=== PATIENT | male | born 1985 | race Caucasian/White ===

== ENCOUNTER → 2020-11-20 | Emergency (ER) | payer MEDICAID ==
[~2020-11-20] VITALS: Ht 162.6 cm; Wt 82.0 kg
[~2020-11-20] MED LIST: BACITRACIN ZINC OINT UDPKT TOP ONE; BO1 TP
[2020-11-20 04:38] VITALS: BP 135/81
== END | disposition home or self-care (01) ==
LOC: ER 04:30
DX: S60.413A Abrasion of left middle finger, initial encounter (principal); S60.415A Abrasion of left ring finger, initial encounter; W25.XXXA Contact with sharp glass, initial encounter; Y93.89 Activity, other specified; Y92.018 Other place in single-family (private) house as the place of occurrence of the external cause
CPT/HCPCS: 99282